=== PATIENT | male | born 1945 | race Caucasian/White ===

== ENCOUNTER 2018-12-27 10:14 | Emergency (ER) | payer MEDICARE ==
[~2018-12-27] VITALS: Ht 182.9 cm; Wt 80.2 kg
--- NOTE | 2018-12-27 10:25 | NUR ---
not in lobby
[2018-12-27] MEDS ORDERED: PROTONIX (12:26)
--- NOTE | 2018-12-27 12:26 | NUR ---
TOOK GENERIC CLARITIN-D YESTERDAY, PRIOR TO SX STARTING. C/O RT GROIN AREA PAIN YESTERDAY. DENIES PROSTATE PROBLEMS.
[2018-12-27 12:37] LABS: MICROSCOPIC NOT IND
[2018-12-27 12:50] LABS: CULTURE INDICATED? NO
--- NOTE | 2018-12-27 13:31 | NUR ---
PT AMBULATORY TO [facility] [facility], AGAIN. GAIT STEADY
[2018-12-27 13:50] LABS: BASOPHILS # (AUTO) 0.03 x10^3/uL (0-0.1); BASOPHILS % (AUTO) 0 % (0-1); EOSINOPHILS # (AUTO) 0.01 x10^3/uL (0-0.4); EOSINOPHILS % (AUTO) 0 % (1-7); LYMPHOCYTES # (AUTO) 0.86 x10^3/uL (1-3.4); LYMPHOCYTES % (AUTO) 9 % (22-44); MD NO; MEAN CORPUSCULAR HEMOGLOBIN 26.3 pg (27.5-34.5); MEAN CORPUSCULAR HGB CONC 32.1 g/dL (33.2-36.2); MEAN CORPUSCULAR VOLUME 81.7 fL (81-97); MEAN PLATELET VOLUME 7.4 fL (7.4-10.4); MONOCYTES # (AUTO) 0.61 x10^3/uL (0.2-0.8); MONOCYTES % (AUTO) 6 % (2-9); NEUTROPHILS # (AUTO) 8.39 x10^3/uL (1.8-6.8); NEUTROPHILS % (AUTO) 85 % (42-75); PLATELET COUNT 271 x10^3/uL (130-400); RED BLOOD COUNT 5.76 x10^6/uL (4.38-5.82); RED CELL DISTRIBUTION WIDTH 13.4 % (9.4-14.8)
--- NOTE | 2018-12-27 13:52 | NUR ---
PT STILL AWAITING CT. AMBULATORY IN ROOM; SPOUSE IN ROOM.
--- NOTE | 2018-12-27 13:54 | NUR ---
CALLED CT DEPT; TECH WILL COME FOR PT SHORTLY.
[2018-12-27 14:04] LABS: ALANINE AMINOTRANSFERASE 27 U/L (12-78); ALBUMIN 4.3 g/dL (3.4-5.0); ANION GAP 5 mmol/L (5-15); CHLORIDE 109 mmol/L (98-107)
[2018-12-27 14:07] LABS: ALKALINE PHOSPHATASE 92 U/L (45-117); BILIRUBIN,TOTAL 1.6 mg/dL (0.2-1.0); TOTAL PROTEIN 8.1 g/dL (6.4-8.2)
--- NOTE | 2018-12-27 14:55 | NUR ---
PT AMBULATORY TO [facility]. PER SPOUSE, PT IS IN PAIN & WOULD LIKE PAIN MED. ERP WILL BE NOTIFIED.
[2018-12-27] MEDS ORDERED: ONDANSETRON 2MG/ML, 2ML IVPush ONE (15:00)
[2018-12-27] MEDS ORDERED: SODIUM CHLORIDE FLUSH 10ML SYR IVF ONE (15:00)
[2018-12-27] MEDS ORDERED: MORPHINE SULFATE 4 MG/ML, 1ML IVPush PRN (15:00)
[2018-12-27] MEDS ORDERED: ONDANSETRON 2MG/ML, 2ML ONE (15:30)
[2018-12-27] MEDS ORDERED: MORPHINE SULFATE 4 MG/ML, 1ML ONE (15:31)
--- NOTE | 2018-12-27 15:44 | NUR ---
TASK RN: Placed PIV for medications per EMAR. Provided medications per EMAR. Per EDMD request, performing bladderscan and notifying EDMD results.
[2018-12-27] MEDS ORDERED: LIDOCAINE 2%,20 ML JEL.PF.APP MM ONE (16:10)
--- NOTE | 2018-12-27 16:31 | NUR ---
PT REPORT TO SIMI OCHOA RN. PT CARE TRANSFERRED.
--- NOTE | 2018-12-27 16:35 | NUR ---
Placed fuentes catheter 12 Irish coude for pt per ED MD order. Pt tolerated placement well without complications. No distress noted or observed. Pt has more than 500 mL of clear yellow urine in fuentes catheter bag. Pt stated relief of "feeling like I need to pee" once catheter was placed. No other needs requested at this time.
--- NOTE | 2018-12-27 17:07 | NUR ---
PT REPORT FROM SIMI OCHOA RN. PT CARE ASSUMED.
--- NOTE | 2018-12-27 18:15 | NUR ---
LORENZANA COLLECTION BAG DRAINED OF 1200ML YELLOW URINE. COLLECTION BAG REMOVED; LEG BAG APPLIED. COLLECTION BAG INSTRUCTIONS/DEMONSTRATION DISCUSSED W/ PT & SPOUSE; QUESTIONS ANSWERED; UNDERSTANDING VERBALIZED. ROBER TURNER.
[2018-12-27 18:16] VITALS: BP 117/71
== END 2018-12-27 18:25 | disposition home or self-care (01) ==
LOC: ED 12:59
DX: N40.1 Benign prostatic hyperplasia with lower urinary tract symptoms (principal); R33.8 Other retention of urine
CPT/HCPCS: 36415; 51702; 74176; 80053; 81003; 83690; 85025; 96374; 96375; 99284; J2405

== ENCOUNTER 2019-01-09 13:23 | Emergency (ER) | payer MEDICARE ==
[~2019-01-09] VITALS: Ht 182.9 cm; Wt 80.1 kg
[~2019-01-09 13:23] MED LIST: PROTONIX
[2019-01-09] MEDS ORDERED: LIDOCAINE 2%,20 ML JEL.PF.APP MM ONE (14:37)
--- NOTE | 2019-01-09 14:56 | NUR ---
PT PRESENTED TO ED WITH INABILITY TO URINATE SINCE THURSDAY. PT A&OX4. LORENZANA STARTED AND URINE SENT TO LAB. ASSESSMENT COMPLETED.
[2019-01-09 15:32] LABS: MICROSCOPIC INDICATED
[2019-01-09 15:33] LABS: CULTURE INDICATED? YES
[2019-01-09 17:05] VITALS: BP 140/78
--- NOTE | 2019-01-09 17:05 | NUR ---
LEG BAG ATTACHED TO PATIENT
--- NOTE | 2019-01-09 17:29 | NUR ---
1100 MLS IN LORENZANA BAG
== END 2019-01-09 17:31 | disposition home or self-care (01) ==
LOC: ED 14:27
DX: N40.1 Benign prostatic hyperplasia with lower urinary tract symptoms (principal); R33.8 Other retention of urine; N39.0 Urinary tract infection, site not specified
CPT/HCPCS: 51702; 81001; 87077; 87086; 87186; 99284